=== PATIENT | male | born 2000 | race Caucasian/White ===

== ENCOUNTER 2021-11-18 10:29 | Emergency (ER) | payer BC, SELFPAY ==
[2021-11-18 10:41] VITALS: BP 120/76; PULSE 108; RESP 16; TEMP 36.6; O2SAT 100
--- NOTE | 2021-11-18 11:13 | ED.SKABFB ---
HPI - Skin/Abscess/Foreign Bdy General Chief complaint: Skin/Abscess/Foreign Body Stated complaint: Sore on face Time Seen by Provider: 11/18/21 11:08 Source: patient Mode of arrival: ambulatory Limitations: no limitations History of Present Illness HPI narrative: 21-year-old male presented for complaint of sore on the right side of his mouth for about 4 days. He states he popped it 2 days ago but it came back and is now painful. Has not applied anything to the site. Has not taken anything for pain. Denies any other locations of abscesses. Denies significant medical history. complaint: rash Related Data Allergies Allergy/AdvReac Type Severity Reaction Status Date / Time No Known Allergies Allergy Unknown Unverified 01/28/15 12:57 Review of Systems Review of Systems: CONSTITUTIONAL: Denies body aches, fever, chills, or sweats. EYES: Denies visual changes, redness, or discharge. ENT: Denies rhinorrhea, congestion, sore throat, or otalgia. CARDIOVASCULAR: Denies chest pain, palpitations, or edema. RESPIRATORY: Denies cough or dyspnea. GASTROINTESTINAL: Denies abdominal pain, nausea, vomiting, or diarrhea. GENITOURINARY: Denies dysuria or hematuria. SKIN: endorses sore to right mouth MUSCULOSKELETAL: Denies back pain, joint pain, or myalgia. NEUROLOGIC: Denies headache, numbness, tingling, or weakness. PSYCH: Denies depression or anxiety. PMFSH Comments At time of signature, I have reviewed and agree with nursing past medical, surgical, social and family history unless otherwise noted. Please see nursing chart for further information. There is no relevant family history pertinent to the presenting complaint Exam Narrative: GENERAL: Well-appearing, well-nourished, and in no acute distress. HEAD: Normocephalic, atraumatic. EYES: PERRLA, conjunctivae clear, and EOMI. ENT: Mucous membranes moist. Oropharynx without edema, erythema or lesions. NECK: Supple. No lymphadenopathy CHEST: Clear to auscultation. No respiratory distress. HEART: Regular rate and rhythm. SKIN: Warm, dry. Right corner of mouth abscess with approx 1 inch erythematous indurated area, white center, fluctuant. NEURO: Alert and oriented x3. PSYCH: Normal mood and affect Course Course Emergency Course: Patient is aware of diagnosis, understands and agrees to treatment plan. Anticipatory guidance given. Patient agrees to follow-up as directed and is aware of reasons to seek care at the emergency department. Portions of this record may have been created with voice recognition software Level of Care: Express Care Visit Vital Signs Vital signs: Vital Signs Temperature 97.9 F 11/18/21 10:41 Pulse Rate 108 H 11/18/21 10:41 Respiratory Rate 16 11/18/21 10:41 Blood Pressure 120/76 11/18/21 10:41 Pulse Oximetry 100 11/18/21 10:41 Temperature 97.9 F 11/18/21 10:41 Pulse Rate 108 H 11/18/21 10:41 Respiratory Rate 16 11/18/21 10:41 Blood Pressure 120/76 11/18/21 10:41 Pulse Oximetry 100 11/18/21 10:41 Reviewed Procedures Abscess I/D face: Date of Incision: 11/18/21 Time of Incision: 11:24 Side (if applicable): right Local Anesthetic: none Technique: needle aspiration Irrigation: No Packing used?: none I&D Results: Pus and Blood Abcess I&D Additional Comments: abscess to right face drained with 18-gauge needle, moderate amount of purulent drainage, patient tolerated well MDM - Skin/Abscess/Foreign Bdy MDM Narrative Medical decision making narrative: Does not appear at this time to be erythema multiforme, bullous, SJS, TEN; no evidence at this time to suggest RMSF, endocarditis or Lyme disease Patient looks well, nontoxic Ddx viral exanthema, contact dermatitis, allergic dermatitis, eczema, urticaria, zoster, abscess, comedone. No soft palate or uvula edema, no tongue, lip edema or other mucosal involvement, no respiratory compromise, no stridor or wheezing,
== END 2021-11-18 11:38 | disposition home or self-care (01) ==
PROVIDERS: Emergency Provider Nurse Practitioner Family
DX: L02.01 Cutaneous abscess of face (principal)
CPT/HCPCS: 10060; 99203; 99204; G0463

== ENCOUNTER 2022-02-23 19:40 | Emergency (ER) | payer BC, SELFPAY ==
[2022-02-23] VITALS (7 sets, daily range): BP systolic 127–140; BP diastolic 80–86; PULSE 66–75; RESP 10–20; TEMP 36.4; O2SAT 99–100
--- NOTE | ~2022-02-23 | XR_ITS ---
XR hand RT 2V DATE: 02/24/2022 01:52 INDICATION: Dorsal dislocation of carpal metacarpal joints, hamate fracture TECHNIQUE: AP and lateral postoperative reduction radiographs COMPARISON: 02/23/2022 right and FINDINGS: There is a dorsally displaced dorsal distal row carpal bone fracture fragment. . Residual posterior dislocation is suggested at the carpometacarpal joints. CT evaluation is recommend ed for more definitive evaluation. IMPRESSION: Fracture dislocation of the carpal metacarpal area seminal CT examination is recommended Reviewed, dictated and finalized at location A. IMPRESSION: Fracture dislocation of the carpal metacarpal area seminal CT exami nation is recommended
--- NOTE | ~2022-02-23 | XR_ITS ---
EXAMINATION: XR hand RT min 3V DATE: 02/23/2022 20:31 INDICATION: Right hand injury and pain and swelling. TECHNIQUE: 4 views of right hand were obtained. COMPARISON: None. FINDINGS: There is dorsal dislocation of third-fifth metacarpals with respect to the carpus. There is a displaced fracture of dorsal distal hamate. Other joint spaces are normal. IMPRESSION: 1. Displaced fracture of dorsal distal hamate. 2. Dorsal dislocation of third-fifth metacarpals with respect to the carpus. Reviewed, dictated and finalized at location A.
[2022-02-23] MEDS: MORPHINE SULFATE (*CRX) 4 MG/ML INJ IV PUSH (23:55)
[2022-02-23] MEDS: fentaNYL CITRATE INJ (*CRX) 100 MCG/2 ML VIAL IV PUSH (23:56)
[2022-02-23] MEDS: LORazepam INJ (*CRX) 2 MG/ML VIAL 1 MG IV PUSH (23:56)
[2022-02-24] VITALS (41 sets, daily range): BP systolic 123–151; BP diastolic 71–99; PULSE 51–91; RESP 11–25; O2SAT 94–100
[2022-02-24] MEDS: fentaNYL CITRATE INJ (*CRX) 100 MCG/2 ML VIAL IV PUSH (01:27)
[2022-02-24] MEDS: SODIUM CHLORIDE 0.9% IV 1,000 ML 500 ML (01:28)
[2022-02-24] MEDS: PROPOFOL IV EMULSION 200 MG/20 ML VIAL (01:29)
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
[2022-02-24] MEDS: HYDROcodone/acetaminophen (*CRX) 5-325 MG TABLET 1 TAB PO (03:09)
[2022-02-24] MEDS: TETANUS,DIPHTHERIA,AC PERTUSSIS ADULT (0.5 ML) BOOSTRIX IM (03:09)
--- NOTE | 2022-02-24 03:59 | PC.NURSE ---
OCL to R wrist taken off and reapplied due to compression of fingers. new OCL feels and looks much better, CMS intact after 15min. sling applied for comfort.
== END 2022-02-24 04:02 | disposition home or self-care (01) ==
PROVIDERS: Emergency Provider Emergency Medicine
DX: S62.141A Displaced fracture of body of hamate [unciform] bone, right wrist, initial encounter for closed fracture (principal); S63.262A Dislocation of metacarpophalangeal joint of right middle finger, initial encounter; S63.264A Dislocation of metacarpophalangeal joint of right ring finger, initial encounter; S63.266A Dislocation of metacarpophalangeal joint of right little finger, initial encounter; Z23 Encounter for immunization; W22.09XA Striking against other stationary object, initial encounter
CPT/HCPCS: 26605; 26700; 73120; 73130; 90471; 90715; 96374; 96375; 99285; A4565; A9270; J2060; J2270; J2704; J3010; J7030

== ENCOUNTER 2022-06-29 16:22 | Emergency (ER) | payer BC, SELFPAY ==
--- NOTE | ~2022-06-29 | XR_ITS ---
EXAMINATION: XR hand RT min 3V DATE: 06/29/2022 17:26 INDICATION: Right hand swelling. TECHNIQUE: 4 views of right hand were obtained. COMPARISON: Right hand radiographs 02/23/2022, 02/24/2022 FINDINGS: Again seen is a fracture of distal dorsal hamate. The dorsal distal fracture fragment demon strates 2 mm posterior displacement. There is periosteal reaction of diaphysis and base of fifth meta carpal with an erosion and overlying soft tissue swelling, consistent with osteomyelitis. IMPRESSION: 1. Osteomyelitis involving fifth metacarpal. 2. Fracture of dorsal distal aspect of hamate with interval improvement in alignment. Reviewed, dictated and finalized at location A. IMPRESSION: 1. Osteomyelitis involving fifth metacarpal. 2. Fracture of dorsal distal aspect of hamate with interval improvement in alig nment.
[2022-06-29 16:23] VITALS: BP 129/80; PULSE 73; RESP 14; TEMP 36.8; O2SAT 100
--- NOTE | 2022-06-29 17:12 | ED.EXTPRO ---
HPI - Extremity Problem General Chief complaint: Extremity Problem,Nontraumatic <Juanita Muhammad PA-C - Last Filed: 06/29/22 23:22> Stated complaint: staph infection to right hand <Juanita Muhammad PA-C - Last Filed: 06/29/22 23:22> Time Seen by Provider: 06/29/22 16:51 <Juanita Muhammad PA-C - Last Filed: 06/29/22 23:22> History of Present Illness HPI Narrative: Patient is a 22-year-old male here for evaluation of a lesion to his right hand. Patient has been seeing an orthopedist, Dr. Lance, [place], and has had 2 operations to repair a dislocated and fractured carpal bone. He tells me the first operation a pin was placed, and in the second operation the pin was removed. The second operation was complicated by a possible surgical site infection, for which he was placed on amoxicillin by Dr. Lance. He states that this improved the symptoms but the redness, swelling, and drainage has returned over the past week. He states the redness is spreading up his hand. He has not been in contact with his surgeon regarding these findings and did miss a recent follow-up appointment. He denies any fevers, chills, nausea, vomiting. He has full range of motion in his hand. <Juanita Muhammad PA-C - Last Filed: 06/29/22 23:22> Related Data Allergies/Adverse reactions: Allergies Allergy/AdvReac Type Severity Reaction Status Date / Time No Known Allergies Allergy Unknown Unverified 06/29/22 16:22 <Juanita Muhammad PA-C - Last Filed: 06/29/22 23:22> Review of Systems Review of Systems: Gen: Denies fevers or chills Eyes: Denies eye pain or visual change ENT: Denies congestion Respiratory: Denies shortness of breath or cough CV: Denies chest pain or palpitations GI: Denies abdominal pain nausea, emesis or diarrhea denies burning, urgency, frequency or hematuria Musculoskeletal: Denies back pain or muscle pain Neuro: Denies numbness, tingling, weakness or focal weakness Skin: Reports lesion to right hand Except as documented, all other systems reviewed and negative <Juanita Muhammad PA-C - Last Filed: 06/29/22 23:22> PMFSH Past Medical History Medical History: Medical History No significant medical problems <Juanita Muhammad PA-C - Last Filed: 06/29/22 23:22> Social History Social History: Social History (Updated 02/24/22 @ 03:50 by Coco Farfan MD) Smoking status: Never smoker <Juanita Muhammad PA-C - Last Filed: 06/29/22 23:22> Exam Narrative: APPEARANCE: Well appearing, no pain in distress, well-nourished. Head: Normocephalic and atraumatic. EYES: PERRLA/EOMI, conjunctivae clear NOSE: No nasal drainage EARS: External ear normal in appearance THROAT: Oropharynx is clear. Mucous membranes are moist. NECK: Supple. No adenopathy, no masses. RESPIRATORY: Airway patent, respirations nonlabored. Clear to auscultation bilaterally, no rales, rhonchi, wheezing. CARDIOVASCULAR: Regular rate and rhythm without murmurs, rubs, or gallops. ABDOMINAL: Normoactive bowel sounds. Soft, nontender, nondistended. No rebound tenderness or guarding. MUSCULOSKELETAL: Full range of motion in right hand and fingers without pain. Extremities are warm and well-perfused. Moves all extremities well. No edema. NEURO: Normal speech. No focal neurologic deficits. SKIN: Patient has a 1 cm circular area on the dorsal surface of his right hand just proximal to the fifth digit that is open and has muscular tissue visible underneath that does move with range of motion in his hand. There is about 4 cm of surrounding erythema. There is a small amount of white drainage in the opening. PSYCHIATRIC: Normal affect/mood. <Juanita Muhammad PA-C - Last Filed: 06/29/22 23:22> Course [employer] SALES CONSULTANT/PA Physician Supervision For this patient encounter, I reviewed the BEVERAGE SALES CONSULTANT or PA documentation, treatment plan, and medical d
[2022-06-29 17:45] LABS: Basophils Absolute Auto 0.1 K/mm3 (0.0-0.1); Basophils Percent Auto 1.2 % (0.2-1.2); Eosinophils Absolute Auto 0.1 K/mm3 (0-0.3); Eosinophils Percent Auto 1.2 % (0-4.4); Hematocrit 44.1 % (42.0-52.0); Hemoglobin 14.9 g/dL (14.0-18.0); Immature Granulocyte Absolute 0.01 K/mm3 (0.00-0.031); Immature Granulocyte Percent A 0.2 % (0-0.5); Lymphocytes Absolute Auto 1.69 K/mm3 (0.9-3.2); Lymphocytes Percent Auto 28.6 % (18.3-44.2); Mean Corpuscular HGB Conc 33.8 g/dl (32-36); Mean Corpuscular Hemoglobin 30.8 pg (26-34); Mean Corpuscular Volume 91.1 fl (80-100); Mean Platelet Volume 8.9 fl (7.4-10.4); Monocytes Absolute Auto 0.7 K/mm3 (0.1-0.6); Monocytes Percent Auto 11.8 % (2.6-8.5); Neutrophils Absolute Auto 3.4 K/mm3 (1.3-6.7); Platelet Count Result 303 k/mm3 (150-375); Red Blood Count 4.84 M/mm3 (4.6-6.20); White Blood Count 5.9 K/mm3 (4.5-10.0)
[2022-06-29 17:55] LABS: Lactic Acid Reflex 0.9 mmol/L (0.7-2.0)
[2022-06-29 17:57] LABS: Alanine Aminotransferase 26 U/L (6-50); Albumin Level 4.9 g/dL (3.5-5.1); Alkaline Phosphatase 61 U/L (38-126); Anion Gap 9 mmol/L (8-16); Aspartate Amino Transferase 37 U/L (17-59); Bilirubin,Total 0.5 mg/dL (0.2-1.3); Blood Urea Nitrogen 14 mg/dL (9-20); CRP 0.6 mg/dL (<1.0); Carbon Dioxide 28 mmol/L (22-30); Chloride 101 mmol/L (98-107); Estimated CRCL calculation 115 ml/min; Estimated Glomerular Filt Rate > 60; Glucose 73 mg/dL (65-110); Potassium 3.6 mmol/L (3.4-5.0); Sodium 138 mmol/L (137-145)
[2022-06-29 18:15] LABS: Erythrocyte Sedimentation Rate 8 mm/hr (0-20)
== END 2022-06-29 19:35 | disposition home or self-care (01) ==
PROVIDERS: Physician Assistant; Emergency Provider Emergency Medicine
DX: T81.49XA Infection following a procedure, other surgical site, initial encounter (principal); M86.9 Osteomyelitis, unspecified; S62.141D Displaced fracture of body of hamate [unciform] bone, right wrist, subsequent encounter for fracture with routine healing; X58.XXXD Exposure to other specified factors, subsequent encounter
CPT/HCPCS: 29125; 36415; 73130; 80053; 83605; 85025; 85652; 86140; 99283

== ENCOUNTER 2022-07-12 12:13 | Outpatient (RCR) | payer BC, SELFPAY ==
[2022-07-12 22:25] LABS: Basophils Absolute Auto 0.1 K/mm3 (0.0-0.1); Basophils Percent Auto 1.4 % (0.2-1.2); Eosinophils Absolute Auto 0.2 K/mm3 (0-0.3); Eosinophils Percent Auto 2.4 % (0-4.4); Hematocrit 45.9 % (42.0-52.0); Immature Granulocyte Absolute 0.11 K/mm3 (0.00-0.031); Immature Granulocyte Percent A 1.7 % (0-0.5); Lymphocytes Absolute Auto 1.66 K/mm3 (0.9-3.2); Lymphocytes Percent Auto 25.2 % (18.3-44.2); Mean Corpuscular HGB Conc 32.7 g/dl (32-36); Mean Corpuscular Hemoglobin 30.9 pg (26-34); Mean Corpuscular Volume 94.4 fl (80-100); Mean Platelet Volume 10.2 fl (7.4-10.4); Monocytes Absolute Auto 0.6 K/mm3 (0.1-0.6); Monocytes Percent Auto 8.6 % (2.6-8.5); Neutrophils Percent Auto 60.7 % (45.5-73.1); Platelet Count Result 210 k/mm3 (150-375); Red Blood Count 4.86 M/mm3 (4.6-6.20); Red Cell Distribution Width 12.1 % (11.5-14.5); White Blood Count 6.6 K/mm3 (4.5-10.0)
== END 2022-10-10 23:59 | disposition home or self-care (01) ==
LOC: HOME HLTH 12:13
PROVIDERS: Visit Provider Orthopaedic Surgery Hand Surgery
DX: T84.69XD Infection and inflammatory reaction due to internal fixation device of other site, subsequent encounter (principal); M86.141 Other acute osteomyelitis, right hand; Z79.2 Long term (current) use of antibiotics
CPT/HCPCS: 85025

== ENCOUNTER 2023-05-28 16:10 | Emergency (ER) | payer BC, SELFPAY ==
--- NOTE | ~2023-05-28 | XR_ITS ---
EXAMINATION: XR femur LT min 2V INDICATION: Left hip pain TECHNIQUE: Two views of the left hip are obtained. COMPARISON: None available FINDINGS: Bone alignment is normal. There is no fracture. There is soft tissue swelling lateral to th e left hip. IMPRESSION: 1. No acute osseous abnormality. Reviewed, dictated and finalized at location L.
--- NOTE | ~2023-05-28 | XR_ITS ---
EXAMINATION: XR knee LT min 4V DATE: 05/28/2023 16:40 INDICATION: Left knee pain TECHNIQUE: Four views of the left knee were obtained. COMPARISON: None. FINDINGS: Alignment is normal. No fracture or osteochondral lesion. Joint spaces are normal with no e rosions. No joint effusion/synovitis. There are tiny hyperdensities projecting anterior to the prox imal left tibia, possibly debris in the skin. IMPRESSION: 1. No acute osseous abnormality. Reviewed, dictated and finalized at location L.
[2023-05-28 16:19] VITALS: BP 127/75; PULSE 103; RESP 18; TEMP 36.6; O2SAT 99
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
== END 2023-05-28 17:09 | disposition home or self-care (01) ==
PROVIDERS: Emergency Provider Nurse Practitioner
DX: S80.02XA Contusion of left knee, initial encounter (principal); V86.56XA Driver of dirt bike or motor/cross bike injured in nontraffic accident, initial encounter
CPT/HCPCS: 73552; 73564; 99214; G0463

== ENCOUNTER 2023-12-23 18:33 | Emergency (ER) | payer BC, SELFPAY ==
[2023-12-23 18:49] VITALS: BP 152/82; PULSE 99; RESP 14; TEMP 37.1; O2SAT 100
--- NOTE | 2023-12-23 19:03 | ED.GENADULT ---
HPI - General Adult General Chief complaint: Skin/Abscess/Foreign Body Stated complaint: Facial Swelling Time Seen by Provider: 12/23/23 19:03 Source: patient, RN notes reviewed and old records reviewed Mode of arrival: ambulatory Limitations: no limitations History of Present Illness HPI narrative: 23-year-old male to Express Care for complaint abscess to left upper lip since yesterday. Patient endorses that he had a blemish that he was picking at couple of days ago and then it became inflamed and red last night. Patient reports that it is become acutely worse today. patient denies swelling in his mouth or tongue. Able to control secretions. Able to tolerate fluids by mouth. Related Data Home Medications Medication Instructions Recorded Confirmed No Home Medications 12/23/23 12/23/23 Allergies Allergy/AdvReac Type Severity Reaction Status Date / Time No Known Allergies Allergy Unknown Verified 12/23/23 18:54 Review of Systems Review of Systems: All systems reviewed & are unremarkable except as noted in HPI and below Constitutional: Constitutional: Reports as per HPI, Denies fever(s) and Denies headache(s) Eyes: Eyes: Reports no additional eye complaints Cardiovascular: Cardiovascular: Reports no additional cardiovascular complaints, Denies chest pain and Denies dyspnea Respiratory: Respiratory: Reports no additional respiratory complaints, Denies cough and Denies dyspnea Musculoskeletal: Musculoskeletal: Reports no additional musculoskeletal complaints Integumentary/Breasts: Skin/Breast: Reports wounds ( left upper lip, pain and swelling) Neurologic: Reports system reviewed and no additional complaints, except as documented Psychiatric: Psychiatric: Reports no additional psychiatric complaints PMFSH Past Medical History Medical History No significant medical problems Social History Social History Smoking status: Never smoker Comments At the time of my signature, I reviewed and agree with the nursing past medical, surgical, social, and family history. There is no relevant family history pertinent to the patient complaint. Exam Const: General: cooperative, healthy appearing, comfortable, no acute distress, alert and well nourished Nutritional Appearance: well nourished Orientation/consciousness: patient oriented x3 Limitations: no limitations HENMT: Head: normal to inspection Ears: external ears normal Face/Nose/Sinus: Normal external nose present, Normal nares present, No normal facial exam, No face symmetric, erythema ( left upper lip) and edema ( left upper lip) Face and sinus: normal facial exam, no erythema and no edema Mouth: Yes Normal oral and palatal mucosa present Eyes: General: appearance normal, both eyes and all related structures Neck: Neck: normal visual inspection, full ROM and no meningeal signs Lymphatic: no lymphadenopathy noted and no lymphedema noted Chest: Chest palpation & inspection: normal inspection of the chest Resp: Effort & Inspection: normal respiratory effort and able to speak in complete sentences Cardio: Jugular venous distension: no JVD Rate: regular rate Rhythm: regular rhythm Back/Spine/Pelvis: Cervical Spine: cervical ROM normal Skin: General skin exam: wounds noted ( 3cm abscess to lt upper lip extending to cheek and tracking to outer nose) Neuro: General: patient oriented x3, gait normal, moves all extremities and no meningeal signs Speech: normal speech Gait exam (Neuro): Normal gait present Extrem: General: normal to inspection, full ROM and capillary refill normal Psych: Appearance: grossly normal and well kempt Course Course Emergency Course: Some parts of this dictation were generated by voice recognition software and may contain typographical and/or grammatical inaccuracies. Level of Care: Express Care Visit Vital Sign
== END 2023-12-23 19:25 | disposition short-term general hospital (02) ==
PROVIDERS: Emergency Provider Nurse Practitioner Family
DX: K13.0 Diseases of lips (principal); L02.01 Cutaneous abscess of face
CPT/HCPCS: 99212; G0463

== ENCOUNTER 2023-12-23 20:01 | Emergency (ER) | payer BC, SELFPAY ==
--- NOTE | ~2023-12-23 | CT_ITS ---
EXAMINATION: CT facial bones w con DATE: 12/23/2023 23:25 INDICATION: L cheek abscess, rule out deep space inf . TECHNIQUE: Computed tomography (CT) of the facial bones and maxillofacial region was performed withou t intravenous contrast. Automated exposure control and iterative reconstruction technique were employ ed. The dose-length product was 282.77 mGy-cm. COMPARISON: None. FINDINGS: Soft Tissues: Marked soft tissue swelling/induration involving the left cheek and left periorbital s oft tissues. No subcutaneous gas or rim-enhancing fluid collection. Inflammatory stranding/edema exte nds into the left metal reclamation kettle tender space. Facial bones: No acute fracture. No lytic or blastic process. Eyes: The globes are intact. The soft tissue planes of the orbits are maintained. Paranasal Sinuses: Mucosal thickening in the right frontal sinus and left maxillary sinus. Moderate mucosal thickening with aerated secretions, surrounding sclerosis, and sinus volume loss in the right maxillary sinus. Decreased pneumatization of the right mastoid air cells. The remaining aerated spac es are clear. Foreign Bodies: No radiopaque foreign bodies. Other Findings: None. IMPRESSION: Marked left facial soft tissue swelling, may represent cellulitis with or without phlegmon. No define d abscess detected at this time. Mild extension of inflammatory change/fluid into the left metal reclamation kettle tender space. Findings suggestive of chronic or acute on chronic right maxillary sinusitis. Reviewed, dictated and finalized at location K. IMPRESSION: Marked left facial soft tissue swelling, may represent cellulitis with or witho ut phlegmon. No defined abscess detected at this time. Mild extension of inflam matory change/fluid into the left metal reclamation kettle tender space. Findings suggestive of chronic or acute on chronic right maxillary sinusitis.
[2023-12-23 20:35] VITALS: BP 141/83; PULSE 96; RESP 16; TEMP 36.6; O2SAT 100
--- NOTE | 2023-12-23 21:51 | ED.GENADULT ---
[facility] - General Adult General Chief complaint: Skin/Abscess/Foreign Body Stated complaint: L facial swelling Time Seen by Provider: 12/23/23 21:22 Source: patient Mode of arrival: ambulatory Limitations: no limitations History of Present Illness [facility] narrative: This is a 23-year-old male who presents to the ED with chief complaint of left facial swelling for the past 24 hours. Reports that he popped the pimple on the left side of his face a couple of days ago and since then has had some increased pain, redness and swelling in the area. He was seen at urgent care prior to right called ahead to have him evaluated for abscess. Patient denies any trismus, drooling, sore throat, trouble swallowing, periorbital swelling, fevers, chills. States he had an episode of a similar abscess about a year ago that was able to be drained without complication. Denies any IV drug use. States that he used drugs in many years ago but none recently. Related Data Allergies Allergy/AdvReac Type Severity Reaction Status Date / Time No Known Allergies Allergy Unknown Verified 12/23/23 18:54 Review of Systems Review of Systems: All systems as dictated in [facility] Past Medical History Medical History No significant medical problems Social History Social History Smoking status: Never smoker Exam Narrative: GENERAL: Well-appearing, well-nourished, and in no acute distress. HEAD: Normocephalic, atraumatic. EYES: PERRLA and EOMI. ENT: Nares clear, no rhinorrhea or epistaxis. Mucous membranes moist. Oropharynx without tonsillar hypertrophy exudate or other lesions. No trismus or drooling. Floor of the mouth intact. No submandibular swelling NECK: Supple. No adenopathy or masses. CHEST: No respiratory distress. Clear to auscultation. No wheezes rales or rhonchi HEART: Regular rate and rhythm. No murmur heard. Normal peripheral pulses. ABDOMEN: Soft, nontender, nondistended, normal active bowel sounds. MSK: Normal range of motion. No edema. SKIN: Moderate swelling to the left perioral region extending into the left zygomatic region. Erythema present. Mildly indurated. NEURO: Alert and oriented x3. No focal deficits. PSYCH: Normal mood and affect. Course Vital Signs Vital signs: Vital Signs Temperature 97.9 F 12/23/23 20:35 Pulse Rate 96 12/23/23 20:35 Respiratory Rate 16 12/23/23 20:35 Blood Pressure 141/83 H 12/23/23 20:35 Pulse Oximetry 100 12/23/23 20:35 Temperature 97.9 F 12/23/23 20:35 Pulse Rate 96 12/23/23 20:35 Respiratory Rate 16 12/23/23 20:35 Blood Pressure 141/83 H 12/23/23 20:35 Pulse Oximetry 100 12/23/23 20:35 Medical Decision Making MDM Narrative Medical decision making narrative: This is a 23-year-old male who presents to the ED with chief complaint of facial swelling x2 days. Vitals are normal. Afebrile. Exam does show moderate left perioral and maxillary facial swelling. Trismus drooling or signs of Raz's angina on exam. No area of fluctuance palpated. Bedside ultrasound does not reveal any obvious abscess or focal fluid collection. Lab work shows elevated white count of 15.6. CMP normal. CRP elevated at 5.2. CT facial with contrast: Marked left facial soft tissue swelling, may represent cellulitis with or without phlegmon. No defined abscess detected at this time. Mild extension of inflammatory change/fluid into the left front office director space. Findings suggestive of chronic or acute on chronic right maxillary sinusitis.. Again there is no abscess found on the CT. Symptoms are consistent with cellulitis with phlegmon. He will be given Ancef here in the ED. discussed admitting for this rapidly onset of cellulitis and swelling. He declines and would like to go and try antibiotics orally. He was given prescription for clindamycin and very strict retur
[2023-12-23] MEDS: KETOROLAC 15 MG/ML VIAL (*BKC) IV PUSH (22:22)
[2023-12-23 22:29] LABS: Basophils Absolute Auto 0.1 K/mm3 (0.0-0.1); Basophils Percent Auto 0.4 % (0.2-1.2); Eosinophils Absolute Auto 0.2 K/mm3 (0-0.3); Eosinophils Percent Auto 1.1 % (0-4.4); Hematocrit 41.4 % (42.0-52.0); Hemoglobin 13.7 g/dL (14.0-18.0); Immature Granulocyte Absolute 0.06 K/mm3 (0.00-0.031); Immature Granulocyte Percent A 0.4 % (0-0.5); Lymphocytes Absolute Auto 0.84 K/mm3 (0.9-3.2); Lymphocytes Percent Auto 5.4 % (18.3-44.2); Mean Corpuscular HGB Conc 33.1 g/dl (32-36); Mean Corpuscular Hemoglobin 30.4 pg (26-34); Mean Corpuscular Volume 91.8 fl (80-100); Mean Platelet Volume 9.4 fl (7.4-10.4); Monocytes Absolute Auto 1.5 K/mm3 (0.1-0.6); Monocytes Percent Auto 9.9 % (2.6-8.5); Neutrophils Absolute Auto 12.9 K/mm3 (1.3-6.7); Neutrophils Percent Auto 82.8 % (45.5-73.1); Platelet Count Result 243 k/mm3 (150-375); Red Blood Count 4.51 M/mm3 (4.6-6.20); Red Cell Distribution Width 12.4 % (11.5-14.5); White Blood Count 15.6 K/mm3 (4.5-10.0)
[2023-12-23 22:47] LABS: Alanine Aminotransferase 19 U/L (6-50); Albumin Level 4.4 g/dL (3.5-5.1); Alkaline Phosphatase 52 U/L (38-126); Anion Gap 7 mmol/L (8-16); Aspartate Amino Transferase 26 U/L (17-59); Bilirubin,Total 0.5 mg/dL (0.2-1.3); Blood Urea Nitrogen 11 mg/dL (9-20); CRP 5.2 mg/dL (<1.0); Calcium 9.8 mg/dL (8.4-10.2); Carbon Dioxide 27 mmol/L (22-30); Chloride 102 mmol/L (98-107); Estimated CRCL calculation 155 ml/min; Estimated Glomerular Filt Rate > 60; Glucose 108 mg/dL (65-110); Potassium 3.9 mmol/L (3.4-5.0); Sodium 136 mmol/L (137-145)
[2023-12-24] MEDS: ceFAZolin 1 GM/NS 50 ML 1 GM/50 ML BAG IVPB (00:08)
== END 2023-12-24 00:34 | disposition home or self-care (01) ==
PROVIDERS: Emergency Provider Physician Assistant
DX: L03.211 Cellulitis of face (principal)
CPT/HCPCS: 36415; 70487; 80053; 85025; 86140; 96365; 96374; 99284; J0690; J1885; Q9967

== ENCOUNTER 2025-05-14 01:23 | Emergency (ER) | payer BC, SELFPAY ==
[2025-05-14 01:28] VITALS: BP 134/86; PULSE 86; RESP 13; TEMP 36.4; O2SAT 99
--- NOTE | 2025-05-14 01:46 | ED.GENADULT ---
HPI - General Adult General Chief complaint: Skin/Abscess/Foreign Body Stated complaint: spider bite Time Seen by Provider: 05/14/25 01:28 History of Present Illness HPI narrative: This is a 24-year-old male history of abscesses presenting an abscess on his left forearm. Started 3 days ago was getting growing and becoming more painful. No systemic signs of illness. Related Data Allergies Allergy/AdvReac Type Severity Reaction Status Date / Time No Known Allergies Allergy Unknown Verified 12/23/23 18:54 [facility] Past Medical History Medical History No significant medical problems Social History Social History Smoking status: Never smoker Exam Narrative: APPEARANCE: No apparent distress. Head: atraumatic. EYES: EOMI, NOSE: Atraumatic NECK: Trachea midline RESPIRATORY: No increased rate of breathing CARDIOVASCULAR: RRR, ABDOMINAL: Non-distended MUSCULOSKELETAl: No obvious deformities NEURO: Alert. Moving 4/4 extremities SKIN:: 1 cm fluctuant mass over the posterior forearm minimal surrounding cellulitic changes PSYCHIATRIC: Normal affect Course Vital Signs Vital signs: Vital Signs Temperature 97.6 F 05/14/25 01:28 Pulse Rate 86 05/14/25 01:28 Respiratory Rate 13 05/14/25 01:28 Blood Pressure 134/86 05/14/25 01:28 Pulse Oximetry 99 05/14/25 01:28 Oxygen Delivery Room Air 05/14/25 01:28 Temperature 97.6 F 05/14/25 01:28 Pulse Rate 86 05/14/25 01:28 Respiratory Rate 13 05/14/25 01:28 Blood Pressure 134/86 05/14/25 01:28 Pulse Oximetry 99 05/14/25 01:28 Oxygen Delivery Room Air 05/14/25 01:28 Procedures Abscess I/D upper extremity: Date of Incision: 05/14/25 Side (if applicable): left Local Anesthetic: bupivacaine 0.25% Amount of anesthesia used (mL): 5 Technique: incised with #11 blade Amount of fluid expressed (mL): 1 Irrigation: Yes Packing used?: none I&D Results: Pus and Blood Medical Decision Making [facility] Narrative Medical decision making narrative: -Course: 24-year-old male presenting with small abscess the back was form. Was incised and drained. Patient placed on Bactrim. Discharged with return precautions and primary care follow-up. Vital Signs Vital Signs: Vital Signs Temperature 97.6 F 05/14/25 01:28 Pulse Rate 86 05/14/25 01:28 Respiratory Rate 13 05/14/25 01:28 Blood Pressure 134/86 05/14/25 01:28 Pulse Oximetry 99 05/14/25 01:28 Oxygen Delivery Room Air 05/14/25 01:28 Temperature 97.6 F 05/14/25 01:28 Pulse Rate 86 05/14/25 01:28 Respiratory Rate 13 05/14/25 01:28 Blood Pressure 134/86 05/14/25 01:28 Pulse Oximetry 99 05/14/25 01:28 Oxygen Delivery Room Air 05/14/25 01:28 Discharge Plan Discharge Clinical Impression: Abscess Patient Disposition: Home Condition: Stable Instructions: Antibiotic Form, Abscess (ED) Additional Instructions: Please complete the antibiotics as instructed. Please follow-up your primary care physician 5-7 days. If the abscess returns or is getting worse please return to ED for re-evaluation. Patient Language: Sami Prescriptions: New sulfamethoxazole-trimethoprim 800-160 mg tablet 1 tablet PO Q12H Qty: 14 0RF No Action clindamycin HCl 300 mg capsule 300 mg PO Q8H Qty: 21 0RF Follow-up/Referrals: UNKNOWN,DOCTOR [Primary Care Provider] -
--- OUTSIDE RECORDS SUMMARY | 2025-05-14 01:53 | XMS_ITS | Continuity of Care Document ---
Author Organization [facility] Address [address] [place] [address] [address] [place] [address] Phone Care Team Providers Care Online Merchant Name Role Phone Farrar OD, Jamil Unavailable Unavailable Procedures Procedure Date Eye Exam, New Patient Refraction Advance Directives Directive Yes / No Effective Date File Name No Information Encounters Encounter Description Practice Location Reason(s) For Visit Diagnoses Date Provider Providers Copied on Encounter [facility], [id number] [place] [address] [address], [place], [place], [id number], [place] tel:[phone] [facility] [place] No Information 6-200 9 Farrar OD Jamil. [address] [facility] [place] , [address], [place], [address], [place]. tel:[phone] Family History Family Member Type Diagnosis Age At Onset No Information Payers Payer name Insurance type Covered constitution party ID Authoriza tion(s) Medicaid [facility], [facility] [id number] Social History Type Description Quantity Date Captured Comments Sex Male Smoking Status No Information Chief Complaint And Reason For Visit No Information Reason For Referral Reason For Referral No Information History Of Present Illness Encounter Date Complaint History Of Prese nt Illness No Information Functional Status Date Functional Assessmen t No Information Instructions Date Instruction Additional Infor mation No Information Assessments Type Assessment Date No Information Patient Care Teams Name Effective Dates (start - stop) Status Members No Information
--- OUTSIDE RECORDS SUMMARY | 2025-05-14 01:53 | XMS_ITS | Referral Summary ---
Author Organization [facility] Address [address] [place] [address] Care Team Providers Care Concrete Paving Supervisor Name Role Phone No, Physician Primary Care Provider [phone] Allergies No known active allergies Medications No known medications Active Problems Problem Noted Date Diagnosed Date Sepsis, due to unspecified o rganism, unspecified whether acute organ dysfunction present 12/24/2023 Tobacco use 12/24/2023 Marijuana use 12/24/2023 Leukocytosis 12/24/2023 Facial cellulitis 12/24/2023 Social History Tobacco Use Types Packs/Day Years Used Date Smoking Tobacco: Every Day Cigarettes 1 7.4 Started: 12/23/2017 Alcohol Use Standard Drinks/Week Comments Defer 0 (1 standard drink = 0.6 oz pur e alcohol) [facility] Utilities Answer Date Recorded In the past 12 months has [employer] electric, gas, oil, or water company threatened to shut off services in your home? No 12/25/2023 Social Connection and Isolat ion Panel [NHANES] Answer Date Recorded In a typical week, how many times do you talk on the phone with family, friends, or neighbors? More than three times a week 12/25/2023 How often do you get togethe r with friends or relatives? More than three times a week 12/25/2023 How often do you attend chur ch or restoration services? Never 12/25/2023 Do you belong to any clubs o r organizations such as jewish groups, unions, fraternal or athletic groups, or school groups? No 12/25/2023 How often do you attend meet ings of the clubs or organizations you belong to? Never 12/25/2023 Are you , , di vorced, , never , or living with a partner? Living with partner 12/25/2023 AUDIT-C Answer Date Recorded Q1: How often do you have a drink containing alcohol? Never 12/24/2023 Q2: How many drinks containi ng alcohol do you have on a typical day when you are drinking? Patient does not drink Q3: How often do you have si x or more drinks on one occasion? Never 12/24/2023 Overall Financial Resource Strain (CARDIA) Answe r Date Recorded How hard is it for you to pa y for the very basics like food, housing, medical care, and heating? Not very hard 12/25/2023 Hunger Vital Sign Answer Date Recorded Within the past 12 months, y ou worried that your food would run out before you got the money to buy more. Never true 12/25/19 24 Within the past 12 months, t he food you bought just didn't last and you didn't have money to get more. Never true 12/25/2023 PRAPARE - Transportation Answer Date Re corded In the past 12 months, has l ack of transportation kept you from medical appointments or from getting medications? No 12/12 In the past 12 months, has l ack of transportation kept you from meetings, work, or from getting things needed for daily living? No 12/25/2023 Housing Stability Vital Sign Answer Alexsander e Recorded In the last 12 months, was t here a time when you were not able to pay the mortgage or rent on time? No 12/25/2023 In the last 12 months, how many places have you lived? 1 12/25/2023 In the last 12 months, was t here a time when you did not have a steady place to sleep or slept in a senior care (including now)? No 12/25/2023 Personal Safety Answer Date Recorded Have you ever been in or are you currently in a harmful physical or emotional relationship or is someone making you feel afraid or unsafe? Denies 12/24/2023 Sex and Gender Information Value Date Recorded Sex Assigned at Not on file Legal Sex Male 1:53 AM CDT Gender Identity Not on file Sexual Orientation Not on file Last Filed Vital Signs Vital Sign Reading Time Taken Comments Blood Pressure 121/72 12/27/2023 11:00 AM CDT Pulse 73 12/27/2023 11:00 AM CDT Temperature 36.5 C (97.7 F) 12/27/2023 11:00 AM CDT Respiratory Rate 18 12/27/2023 11:00 AM CDT Oxygen Saturation 93% 12/27/2023 11:00 AM CDT Inhaled Oxygen Concentration - - Weight 84.8 kg (187 lb) 12/24/2023 9:44 PM CDT Height 185.4 cm (6' 1) 12/24/2023 12:47 PM CDT Body Mass Index 24.67 12/24/2023 12:47 PM CDT Plan of Treatment Not on file Insurance Advance Directives For more information, please contact: [phone] * Full Code (Latest Code Status on File) Date Activated Date Inactivated Comments 12/24/2023 8:05 PM 12/27/2023 4:05 PM Care Teams Concrete Paving Supervisor Relationship Specialty Start Date End Date No, Physician PCP - General 12/24/23
--- OUTSIDE RECORDS SUMMARY | 2025-05-14 01:53 | XMS_ITS | Clinical Summary ---
Author Organization [facility] al Address [address] [place] [address] Care Team Providers Care City Maintenance Manager Name Role Phone No, Physician Primary Care Provider [phone] Allergies No known active allergies Medications No known medications Active Problems Problem Noted Date Diagnosed Date Sepsis, due to unspecified o rganism, unspecified whether acute organ dysfunction present 12/24/2023 Tobacco use 12/24/2023 Marijuana use 12/24/2023 Leukocytosis 12/24/2023 Facial cellulitis 12/24/2023 Surgical History Surgery Date Site/Laterality Comments KNEE SURGERY Right HAND SURGERY Right x 4 Medical History Medical History Date Comments Tobacco use Marijuana use Family History Medical History Relation Name Comments No Known Problems Father No Known Problems Mother Relation Name Status Comments Father Mother Social History Tobacco Use Types Packs/Day Years Used Date Smoking Tobacco: Every Day Cigarettes 1 7.4 Started: 12/23/2017 Alcohol Use Standard Drinks/Week Comments Defer 0 (1 standard drink = 0.6 oz pur e alcohol) [facility] Utilities Answer Date Recorded In the past 12 months has [employer], gas, oil, or water [employer] threatened to shut off services in your [...] 12/25/2023 How often do you attend chur or shinto services? Never 12/25/2023 Do you belong to any clubs o r organizations such as advent groups, unions, fraternal or athletic groups, or [...] place to sleep or slept in a long-term (including now)? No 12/25/2023 Personal Safety Answer [...] on file Sexual Orientation Not on file Obstetrics History Last Filed Vital Signs Vital Sign Reading [...] 12/24/2023 12:47 PM CDT Plan of Treatment Health Maintenance Due Date Last Done Comments Depression Screening 2000 Hepatitis C Screening 2000 Pneumococcal vaccine <65 (1 of 1 - PPSV23) 2006 02/27/2001, 2000, 2000 Regular Well Visit/Exam 18-64 2018 Influenza Vaccine (#1) 2025 , 10/26/2015, 07/14/2012, Additional history exists DTaP/Tdap/Td Vaccine (8 - Td or Tdap) 02/25/2032 02/24/2022, 04/28/2012, 08/15/2004, Additional history exists Hepatitis B Screening Completed 06/02/2001 , 2000, 2000 Varicella Vaccines Completed 10/02/2011, 11/07/2001 HPV Vaccines Completed 08/12/2012, 04/13, 10/02/2011 Insurance [facility] [place] [address] [facility] Advance Directives For more information, please contact: [phone] * Full Code (Latest Code Status on File) Date Activated Date Inactivated Comments 12/24/2023 8:05 PM 12/27/2023 4:05 PM Care Teams City Maintenance Manager Relationship Specialty Start Date End Date No, Physician PCP - General 12/24/23
[2025-05-14] MEDS: SULFAMETHOXAZOLE/TRIMETHOPRIM 800/160 MG DS TABLET 1 TAB PO (01:56)
== END 2025-05-14 02:00 | disposition home or self-care (01) ==
LOC: ANHED 01:51
PROVIDERS: Emergency Provider Emergency Medicine
DX: L02.414 Cutaneous abscess of left upper limb (principal)
CPT/HCPCS: 10060; 99283; A9270